=== PATIENT | male | born 1990 | race Hispanic/Latino ===

== ENCOUNTER 2019-05-21 11:00 | Inpatient (IN) | payer OTHER ==
[~2019-05-21] VITALS: Ht 185.4 cm; Wt 80.2 kg
[2019-05-21 11:32] LABS: HEMATOCRIT 44.7 % (42.0-52.0); HEMOGLOBIN 16.3 g/dl (13.5-17.5); MEAN CORPUSCULAR HEMOGLOBIN 32.7 pg (27.0-33.0); MEAN CORPUSCULAR HGB CONC 36.5 g/dl (32.0-36.5); MEAN CORPUSCULAR VOLUME 89.6 fl (80.0-96.0); PLATELET COUNT, AUTOMATED 164 10^3/uL (150-450); RED BLOOD COUNT 4.99 10^6/uL (4.30-6.10); WHITE BLOOD COUNT 6.2 10^3/uL (4.0-10.0)
[2019-05-21 11:56] LABS: AMPHETAMINES LEVEL URINE NEGATIVE (NEGATIVE); BARBITURATES URINE NEGATIVE (NEGATIVE); BENZODIAZEPINES URINE NEGATIVE (NEGATIVE); CANNABINOIDS URINE NEGATIVE (NEGATIVE); COCAINE METABOLITE URINE NEGATIVE (NEGATIVE); METHADONE URINE NEGATIVE (NEGATIVE); OPIATES URINE NEGATIVE (NEGATIVE); PHENCYCLIDINE URINE NEGATIVE (NEGATIVE)
[2019-05-21 12:06] LABS: ACETAMINOPHEN LEVEL < 2.0 UG/ML (10.0-30.0); ALBUMIN 4.2 GM/DL (3.2-5.2); ALT/SGPT 27 U/L (12-78); BILIRUBIN,DIRECT 0.4 MG/DL (0.0-0.2); BILIRUBIN,TOTAL 1.7 MG/DL (0.2-1.0); BLOOD UREA NITROGEN 16 MG/DL (7-18); CARBON DIOXIDE LEVEL 28 MEQ/L (21-32); CHLORIDE LEVEL 106 MEQ/L (98-107); CREATININE FOR GFR 0.88 MG/DL (0.70-1.30); ETHYL ALCOHOL (ETHANOL) < 0.003 % (0.000-0.010); GLOMERULAR FILTRATION RATE > 60.0 (>60); GLUCOSE, FASTING 77 MG/DL (70-100); POTASSIUM SERUM 3.9 MEQ/L (3.5-5.1); SALICYLATE LEVEL < 1.7 MG/DL (5.0-30.0); SODIUM LEVEL 140 MEQ/L (136-145); TOTAL PROTEIN 6.7 GM/DL (6.4-8.2)
[2019-05-21] MEDS ORDERED: MOM 30ML SUSPENSION UDC PO PRN (18:00)
[2019-05-21] MEDS ORDERED: ACETAMINOPHEN TAB 650MG DOSE (2X325MG) PO PRN (18:00)
[2019-05-21] MEDS ORDERED: MAALOX 30 ML SUSP *UDC PO PRN (18:00)
[2019-05-21] MEDS ORDERED: traZODone 50 MG TAB PO PRN (21:00)
[2019-05-22 00:09] VITALS: BP 136/77
[2019-05-22 06:27] VITALS: BP 101/55
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
[2019-05-22] MEDS ORDERED: SERTRALINE HCL 25 MG TABLET PO ONE (14:00)
[2019-05-22 17:53] VITALS: BP 114/68
--- NOTE | 2019-05-22 20:49 | HPEPDOC ---
General Date of Admission May 21, 2019 at 17:56 Date of Service: May 22, 2019 Attending Physician: SUBHA GARCIA MD Chief Complaint The patient is a 28-year-old male admitted with a reason for visit of Unspecified Depressive Disorder. 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 He is being seen today by hospitalist services for medical consult and clearance. He has a significant medical history of anxiety, depression, and insomnia that he reports was first diagnosed and treatment started May 2017 and he ran out of medication March 2018. He has not taken medication since then and noticed the symptoms began to become worse, [place], reasoning, unclear at this time. Patient is currently inpatient on the mental health unit at [facility] under psychiatry care. He denies being treated or diagnose with Hypertension, hypothyroidism, diabetes, hyperlipidemia, and or kidney disease. Home Medications Scheduled Sertraline HCl (Sertraline HCl) 25 Mg Tablet, 25 MG PO DAILY for mood Scheduled PRN Trazodone HCl (Trazodone HCl) 100 Mg Tablet, 100 MG PO QHSP PRN for INSOMNIA Allergies Coded Allergies: No Known Allergies (Unverified , 05/21/19) Past Medical History Medical History See HPI Surgical History Right ankle Family History Significant Family History: No pertinent family hx Social History * Smoker: Denies Alcohol: occationally Drugs: prescription drugs (May 2017 through March 2018) Recent Travel/Sick Contacts: Denies: Recent travel, Recent sick contacts Psychosocial History: Anxiety, Cihp SI and HI (today), Depression, Emotional problems, Suicidal thoughts A-FIB/CHADSVASC A-FIB History Current/History of A-Fib/PAF?: No Review of Systems Constitutional: Reports: Fatigue; Denies: Chills, Fever, Malaise, Night Sweats, Weakness, Weight Loss, Lethargy, Other Eyes: Denies: Pain, Vision change, Conjunctivae inflammation, Eyelid inflammation, Redness, Other ENT: Denies: Head Aches, Ear Pain, Dysphagia, Sinus Congestion, Post Nasal Drip, Sore Throat, Epistaxis, Other Symptoms Skin: Denies: Rash, Lesions, Jaundice, Bruising, Itching, Dry, Breakdown, Nail Changes, Other Pulmonary: Denies: Dyspnea, Cough, Pleuritic Chest Pain, Other Symptoms Cardiovascular: Denies: Chest Pain, Palpitations, Orthopnea, Paroxysmal Noc. Dyspnea, Edema, Lt Headedness, Other Symptoms Gastrointestinal: Denies: Nausea, Vomiting, Abdominal Pain, Diarrhea, Constipation, Melena, Hematochezia, Other Symptoms Genitourinary: Denies: Dysuria, Frequency, Incontinence, Hematuria, Retention, Other Symptoms Hematologic: Denies: Bruising, Bleeding Excessively, Petecchia, Purpura, Enlarged Lymph Nodes, Other Hematologic Endocrine: Denies: Polydipsia, Polyphagia, Polyuria, Heat Intolerance, Cold Intolerance, Other Endocrine Sx Musculoskeletal: Denies: Neck Pain, Back Pain, Shoulder Pain, Arm Pain, Hand Pain, Leg Pain, Foot Pain, Joint Pain, Muscle Pain, Spasms, Other Symptoms Neurological: Reports: Change in speech, Other Symptoms (insomnia. On his sleep 2 hours, able to fall sleep but wakes up, cannot go back to sleep) Psych: Reports: Depression Physical Examination General Exam: Positive: Alert, Cooperative Eye Exam: Positive: PERRLA, Conjunctiva & lids normal ENT Exam: Positive: Atraumatic, Mucous membr. moist/pink, Pharynx Normal, Tongue Midline, Nares Patent, Ext Auditory Canal Nml Neck Exam: Positive: Supple, +2 carotid pulse wo bruit Chest Exam: Positive: Clear to auscultation Heart Exam: Positive: Rate Normal, Regular Rhythm, Normal S1, Normal S2 Telemetry: Positive: No significant arrhythmia Abdomen Exam: Positive: Normal bowel sounds, Soft Extremity Exam: Positive: Normal pulses Skin Exam: Positive: Nl turgor and temperature Neuro Exam: Positive: Normal Gait, Strength at 5/5 X4 ext, Normal Tone, Cranial Nerves 3-12 NL Psych Exam: Positive: Anxiety (leg bounces during physical exam), Memory Intact, Oriented x 3 Vital Signs Vital Signs Date Time Temp Pulse Resp B/P (MAP) Pulse Ox O2 Delivery O2 Flow Rate FiO2 05/22/19 17:53 98.4 64 16 114/68 (83) 05/21/19 20:40 98 Room Air Assessment/Plan Suicidal ideationacute Plan Patient will continue inpatient mental health unit services Check a.m. labs, fasting CBC, CMP, A1c, lipid profile Continue taking Zoloft as prescribed by mental health services, continue mental health program. Follow-up with medicine services as needed Insomniaacute on chronic Increase trazodone from 50 mg to 100 mg by mouth daily at bedtime as needed Prognosisgood DVT prophylaxisnot at risk. Patient is ambulatory Discharge: Mental health unit Problems (1) Depression Plan / VTE VTE Prophylaxis Ordered?: No VTE Exclusion Mechanical Proph: Low Risk for VTE VTE Exclusion Pharmacological: At Low Risk for VTE Plan Diet: Continue Current Activity: Continue Current Medications: Bowel Regimen Diagnostics: Check Labs, Repeat Labs in AM Anticipated Discharge: Psych MAURICE MCKINNEY May 22, 2019 20:49
[2019-05-22] MEDS: traZODone 100 MG TAB PO PRN (23:14)
[2019-05-23 06:32] VITALS: BP 102/56
[2019-05-23 06:37] LABS: BASO % 0.4 % (0.0-1.0); EOS # 0.3 10^3/uL (0.0-0.5); EOS % 3.2 % (0.0-3.0); HEMATOCRIT 41.4 % (42.0-52.0); HEMOGLOBIN 15.1 g/dl (13.5-17.5); LYMPH # 3.4 10^3/uL (1.5-5.0); LYMPH % 43.4 % (24.0-44.0); MEAN CORPUSCULAR HEMOGLOBIN 32.1 pg (27.0-33.0); MEAN CORPUSCULAR HGB CONC 36.5 g/dl (32.0-36.5); MEAN CORPUSCULAR VOLUME 88.1 fl (80.0-96.0); MONO # 0.8 10^3/uL (0.0-0.8); MONO % 9.7 % (0.0-5.0); NEUTROPHILS # 3.3 10^3/uL (1.5-8.5); PLATELET COUNT, AUTOMATED 180 10^3/uL (150-450); WHITE BLOOD COUNT 7.7 10^3/uL (4.0-10.0)
[2019-05-23 07:01] LABS: BLOOD UREA NITROGEN 17 MG/DL (7-18); CARBON DIOXIDE LEVEL 32 MEQ/L (21-32); CHLORIDE LEVEL 105 MEQ/L (98-107); CREATININE FOR GFR 0.96 MG/DL (0.70-1.30); GLOMERULAR FILTRATION RATE > 60.0 (>60); GLUCOSE, FASTING 80 MG/DL (70-100); POTASSIUM SERUM 3.6 MEQ/L (3.5-5.1); SODIUM LEVEL 141 MEQ/L (136-145)
[2019-05-23 07:02] LABS: ALBUMIN 3.9 GM/DL (3.2-5.2); ALT/SGPT 21 U/L (12-78); BILIRUBIN,TOTAL 1.5 MG/DL (0.2-1.0); CALCIUM LEVEL 8.9 MG/DL (8.5-10.1); TOTAL PROTEIN 6.6 GM/DL (6.4-8.2)
[2019-05-23] MEDS: SERTRALINE HCL 25 MG TABLET PO SCH (08:58)
[2019-05-23] MEDS ORDERED: TRAZ10TA PO ×2 (13:04→15:56)
[2019-05-23] MEDS ORDERED: SERT25TA88 PO ×2 (13:04→15:56)
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
[2019-05-23 17:50] VITALS: BP 145/85
[2019-05-23] MEDS: traZODone 100 MG TAB PO PRN (23:04)
[2019-05-24 06:40] VITALS: BP 83/51
[2019-05-24] MEDS: SERTRALINE HCL 25 MG TABLET PO SCH (08:28)
--- NOTE | 2019-05-24 10:52 | MHDSPDOC ---
[facility] Discharge Summary Discharge Summary DATE OF ADMISSION: May 21, 2019 at 17:56 DATE OF DISCHARGE: 05/24/19 Discharge Jing Marrufo MRN: N/A Date of : N/A Date of Service: 05/24/2019 Diagnoses Unspecified depressive disorder. Rule out adjustment versus factitious, highly unlikely to be MDD in my clinical judgment. 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 He reports being treated in [place] with sertraline and trazodone that he found helpful. 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 The patient notes that he has become tired of the process. He's currently on a med board. He notes that in this environment, he has become much less stressed and that his depression has been improving. He reports being isolated here with no social connections and that he has few if any coping skills. He reports prior to coming in that he had had significant depression, suicidality presenting again and had not been taking his medications after he left [place]. Consultants Involved Hospitalist/PCP screening Treatment and Progress On The Unit The patient was admitted to the unit, restarted on medication that he found helpful in the past, namely 25 mg of sertraline and 100 mg of trazodone. He had positive improvements in his mood with no fatigue or loss of interest noted. He attended groups well, had no major behavioral problems on the unit and other than some mild anxiety about what others will think about him when he returns, made good progress. He was switched to a voluntary status after he was initially assessed. On the day of discharge, the patient declined further voluntary admission and did not meet involuntary criteria as they have been denying suicidal thoughts for some time. He was initially not homicidal and was not significantly impaired by his depression and was able to tender his needs on the unit and thus discharged in good veronica. 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 Mental Status Examination General: Well dressed with good hygiene Speech: Spontaneous and fluid Thought processes: Linear and logical MSK: Smooth and coordinated gait, no signs of tremors or involuntary orofacial movements Thought content: Future orientated Abstract reasoning, and computation: Intact Description of associations: Intact Description of abnormal or psychotic thoughts: Denies any suicidal or homicidal ideation. Denies any auditory or visual hallucinations. Does not appear to be responding to internal stimuli. Does not appear to be endorsing any bizarre or paranoid ideation. Judgment: fair Insight: fair Orientation: Alert and orientated 3 Cognition: Grossly normal Recent and remote memory: Intact Attention span and concentration: Intact Fund of knowledge: Adequate Mood: "okay" Affect: Euthymic with a full range Follow Up The social work team worked during the pre-discharge meeting in order to evaluate for further issues of lethality address them fully before discharge. They worked on safety planning with the patient's family members in order to ensure that the patient will have a safe and effective discharge. Time Spent The amount of time spent in the coordination of care for this patient was approximately 20 minutes. Vital Signs/I&Os Vital Signs Date Time Temp Pulse Resp B/P (MAP) Pulse Ox O2 Delivery O2 Flow Rate FiO2 05/24/19 06:40 98.1 65 12 83/51 (62) 05/21/19 20:40 98 Room Air Medications Scheduled Sertraline HCl (Sertraline HCl) 25 Mg Tablet, 25 MG PO DAILY for mood for 30 Days, #30 Scheduled PRN Trazodone HCl (Trazodone HCl) 100 Mg Tablet, 100 MG PO QHSP PRN for INSOMNIA for 30 Days, #30 Allergies Coded Allergies: No Known Allergies (Unverified , 05/21/19) STEPHON HOUSTON DO May 24, 2019 10:52
[2019-05-25 00:06] LABS: TESTOSTERONE FREE (DIRECT) 20.3 pg/mL (9.3-26.5)
== END 2019-05-24 11:13 | disposition home or self-care (01) | DRG 882 ==
LOC: M ED 11:00 → M ED INP 17:56 → M PSY 23:07
PROVIDERS: ADMIT Psychiatry & Neurology Addiction Medicine; ATTEND Psychiatry & Neurology Addiction Medicine
DX: F43.20 Adjustment disorder, unspecified (principal); F68.10 Factitious disorder imposed on self, unspecified; Z62.811 Personal history of psychological abuse in childhood; Z62.810 Personal history of physical and sexual abuse in childhood; G47.00 Insomnia, unspecified